=== PATIENT | male | born 2000 | race Caucasian/White ===

== ENCOUNTER 2018-11-24 04:50 | Emergency (ER) | payer OTHER ==
[2018-11-24] MEDS ORDERED: Lidocaine 1% w/Epinephrine 1:100K 20 ML VIAL ONE (05:42)
== END 2018-11-24 06:31 | disposition home or self-care (01) ==
LOC: ERS 04:50
DX: S06.0X1A Concussion with loss of consciousness of 30 minutes or less, initial encounter (principal); S01.81XA Laceration without foreign body of other part of head, initial encounter; S01.01XA Laceration without foreign body of scalp, initial encounter; Y04.0XXA Assault by unarmed brawl or fight, initial encounter
CPT/HCPCS: 12002; J2001

== ENCOUNTER 2018-11-30 15:13 | Emergency (ER) | payer OTHER | END 2018-11-30 15:57 | disposition home or self-care (01) | LOC: ERS 15:13 | DX: S01.81XD Laceration without foreign body of other part of head, subsequent encounter (principal); S01.01XD Laceration without foreign body of scalp, subsequent encounter; Y04.0XXD Assault by unarmed brawl or fight, subsequent encounter ==